=== PATIENT | female | born 1945 | race Caucasian/White ===

== ENCOUNTER 2020-09-06 14:03 | Outpatient (CLI) | payer MEDICARE ==
[~2020-09-06] VITALS: Ht 149.9 cm; Wt 46.8 kg
[2020-09-06] MEDS ORDERED: LORA-404 PO (15:00)
[2020-09-06] MEDS ORDERED: METO-333 PO (15:00)
[2020-09-06] MEDS ORDERED: MELO15TA39 PO (15:00)
[2020-09-06] MEDS ORDERED: TRM50T PO (15:00)
== END 2020-09-06 15:05 | disposition home or self-care (01) ==
LOC: PREOP 14:03
PROVIDERS: ATTEND Specialist
DX: Z01.818 Encounter for other preprocedural examination (principal)

== ENCOUNTER 2020-09-07 11:43 | Day surgery (SDC) | payer MEDICARE ==
[2020-09-07] VITALS (11 sets, daily range): BP systolic 164–198; BP diastolic 76–98
[~2020-09-07] VITALS: Ht 149 cm; Wt 46.8 kg
[~2020-09-07 11:43] MED LIST: LORA-404 PO; MELO15TA39 PO; METO-333 PO; TRM50T PO
[2020-09-07] MEDS: LACTATED RINGERS 1,000 ML IV PRN ×2 (12:29→15:35)
[2020-09-07] MEDS ORDERED: ceFAZolin INJECTION 1,000 MG in WATER (STERILE) FOR INJECTION 10 ML IV ONE (12:30)
[2020-09-07] MEDS ORDERED: ceFAZolin INJECTION 1,000 MG ONE (12:41)
[2020-09-07] MEDS ORDERED: WATER (STERILE) FOR INJECTION 10 ML ONE (12:41)
[2020-09-07] MEDS ORDERED: GLYCOPYRROLATE 0.2 MG/ML (ROBINUL) 2 ML VIAL ONE (14:01)
[2020-09-07] MEDS ORDERED: proPOfol 200 MG/20 ML (DIPRIVAN) VIAL IV ONE (14:01)
[2020-09-07] MEDS ORDERED: ONDANSETRON 4 MG/2 ML (SDV) Z0FRAN ONE ×2 (14:01→17:49)
[2020-09-07] MEDS ORDERED: NEOSTIGMINE 3 MG/3 ML VIAL ONE (14:01)
[2020-09-07] MEDS ORDERED: LIDOCAINE PF 2% 5 ML (XYLOCAINE) VIAL ONE (14:01)
[2020-09-07] MEDS ORDERED: ROCURONIUM 10 MG/ML 5 ML SYRINGE IV ONE (14:01)
[2020-09-07] MEDS ORDERED: fentaNYL INJ 100 MCG/2 ML AMP ONE (14:02)
[2020-09-07] MEDS ORDERED: ROPIVACAINE 5MG/ML 30ML VIAL ONE (14:13)
[2020-09-07] MEDS ORDERED: LIDOCAINE/EPI 2% 1:100,00 (XYLOCAINE) 20 ML VIAL ONE (14:13)
[2020-09-07] MEDS ORDERED: SEVOFLURANE (ULTANE) 15 ML INHAL SOLN ONE (17:18)
[2020-09-07] MEDS ORDERED: MEPERIDINE (DEMEROL) INJ 50 MG/ML IVP ONE (17:45)
[2020-09-07] MEDS ORDERED: HYDROmorphone 2 MG/ML VIAL (DILAUDID) IV ONE (17:45)
[2020-09-07] MEDS ORDERED: morphine INJ 10 MG/ML 1ML (SYR OR VIAL) IVP ONE (17:45)
[2020-09-07] MEDS ORDERED: ONDANSETRON 4 MG/2 ML (SDV) Z0FRAN IVP PRN ×2 (17:45→22:00)
[2020-09-07] MEDS ORDERED: morphine INJ 10 MG/ML 1ML (SYR OR VIAL) ONE (17:48)
--- NOTE | 2020-09-07 17:51 | Progress Note-Pre Operative ---
Pre-Operative Progress Note H&P Reviewed The H&P was reviewed, patient examined and no changes noted. Date Seen by Provider: Sep 07, 2020 Time Seen by Provider: 14:00 Date H&P Reviewed: Sep 07, 2020 Time H&P Reviewed: 14:30 Pre-Operative Diagnosis: bilateral mandible fx LISA KAUR DDS Sep 07, 2020 17:51
--- NOTE | 2020-09-07 18:09 | Anesthesia-General Post-Op ---
General Patient Condition Mental Status/LOC: Same as Preop Cardiovascular: Satisfactory Nausea/Vomiting: Absent Respiratory: Satisfactory Pain: Controlled Complications: Absent Post Op Complications Complications None Follow Up Care/Instructions Patient Instructions None needed. Anesthesia/Patient Condition Patient Condition Patient is doing well, no complaints, stable vital signs, no apparent adverse anesthesia problems. No complications reported per nursing. TAI ESPARZA CRNA Sep 07, 2020 18:09
[2020-09-07] MEDS: HYDROcodone/APAP 7.5MG-325 MG/15 ML (LORTAB) UDC PO PRN (20:25)
[2020-09-07] MEDS: ceFAZolin INJECTION 1,000 MG in WATER (STERILE) FOR INJECTION 10 ML IV SCH (22:29)
[2020-09-08 03:47] VITALS: BP 142/74
[2020-09-08] MEDS: HYDROcodone/APAP 7.5MG-325 MG/15 ML (LORTAB) UDC PO PRN (04:08)
[2020-09-08] MEDS: ceFAZolin INJECTION 1,000 MG in WATER (STERILE) FOR INJECTION 10 ML IV SCH (06:08)
[2020-09-08 08:07] VITALS: BP 172/74
[2020-09-08 11:09] VITALS: BP 172/74
--- NOTE | 2020-10-05 04:28 | OPERATIVE REPORT ---
DATE OF SERVICE: 09/07/2020 SURGEON: Dr. Lisa Kaur. BOOK JACKET COVER MACHINE OPERATOR: Paola Kevin. ANESTHESIA: General endotracheal. COMPLICATIONS: There were no complications. FLUIDS: 100 mL. She had 1900 mL of crystalloid and 700 mL of urine output. COUNTS: Instrument, needle and sponge count were correct x2. HISTORY OF PRESENT ILLNESS AND INDICATIONS FOR PROCEDURE: The patient is a 75-year-old white female who presented to me after she had fallen at her house while ____ approximately 2 weeks prior to I had been able to evaluate her. At this point, she noticed that her lower jaw was somehow moving different. She sought treatment from two to three other surgeons who advised her they would not treat her. She then went to her dental clinic, they took a Panorex and forwarded to me, which demonstrated a bilateral mandibular fracture of a severely atrophic mandible. She has a fracture in the mid body portion bilaterally. Her mandible was approximately 4.5 mm in vertical height. After speaking with her extensively, I advised her this is a very difficult fracture to treat and we will be fortunate if we can get it to go to union. She would need to be very compliant with her postoperative care. I also advised her that there is the inferior alveolar nerve, which runs either in this case on top of the mandible or just barely in the medullary portion and I informed her that by fixing this, she would almost certainly have some amount of decreased sensation in her chin either unilaterally or bilaterally. Also, I advised her we would have to approach this extraorally by doing bilateral dissections to expose the mandible and then place our fixation on it. I advised her at this point also that in addition to the inferior alveolar nerve she may have some decreased function of the marginal mandibular branch of the facial nerve. After answering all of her questions, she elected for surgery and then she was posted at the earliest opportune time. DESCRIPTION OF PROCEDURE: The patient was taken to the operating room and placed on the operatory table. The appropriate monitors were placed, and anesthesia was induced via nasotracheal intubation without difficulty. After this was secured, the surgeon left the room, scrubbed, returned, donned sterile gowns and gloves and prepped and draped the patient in the usual standard sterile fashion. After this, I deposited local anesthesia just barely in the subcuticular region in the mid body portion of the mandible bilaterally approximately an inch inferior to what we could feel would be the fracture sites. Started on the left side, I made an incision through the skin and subcuticular tissue and then dissected bluntly exposing the platysma muscle, which also had some marked atrophy at this point and then bluntly dissected through the platysma muscle, elevated off the deeper tissues and then this was excised sharply. After this, I could also feel the fracture site still deep in the tissue of the neck. I was then able to using a nerve stimulator dissect down and excise through the superficial layer of deep cervical fascia, excised this, reflected this superiorly. Hopefully, protecting the marginal branch of the facial nerve. After this, I continued the blunt dissection until I was able to identify the fracture site and the inferior border of the mandible. Since it has been approximately 2 weeks, there was a significant capsular callus formed there, but I was able to sharply with a scalpel #15 blade excise through this and then I was able to mobilize the fracture segments and anatomically reduce them. I then turned my attention to the right side, performed exact same procedure in the same order in which we were again able to bluntly dissect after making an incision, identified a very kind of wispy platysma layer, identify the superficial layer of deep cervical fascia. Again, using a nerve stimulator, we were able to examine whether or not we had any other branch of the facial nerve and our plane of dissection, I did not see any signs of this. We then were able to excise the superficial layer of the deep cervical fascia and then bluntly dissect the inferior border of the mandible. After this, we were able to anatomically reduce both sides of the fracture digitally but without any fixation, so we started on the right side as it appeared to come together somewhat easier and then placed a 4-hole 1.5 mm plate and after adapting it to the extreme inferior border of the mandible, we placed 2 screws in the proximal and 2 screws in the distal segment. Next, we turned our attention to the left side of the mandible where the fracture was present and again we were able to anatomically reduce this, both these plates were 5-hole 1.5 mm plates and then placed 2 in the proximal and 2 in the distal segment. I did see the inferior alveolar nerve on the left side. It was lying on top of the mandible, but still subperiosteal. I was unable to see any signs of the inferior alveolar nerve on the left side. After this, I made sure that we could move the mandible and it did indeed removed in 1 piece. After that, we copiously irrigated with normal saline and then closed the periosteum with 3-0 Vicryl bilaterally and then closed the superficial layer of the deep cervical fascia with 4-0 chromic and then the subcuticular region with 4-0 chromic and interrupted sutures and then lastly the skin with 6-0 Prolene in a running fashion bilaterally. This completed our procedure. She was allowed to emerge from her general anesthetic. She was then taken to the recovery room and assessed to have stable vital signs, breathing spontaneously with a pulse ox of 99%. Job ID: [id number] DocumentID: [id number] Dictated Date: 10/04/2020 15:52:09 Delivery Specialist Date: 10/05/2020 03:10:11 Dictated By: LISA KAUR DDS
== END 2020-09-08 11:10 | disposition home or self-care (01) ==
LOC: SDC 11:43 → 4TH 18:16 → SDC 09-08 11:10
PROVIDERS: ATTEND Specialist
DX: S02.609A Fracture of mandible, unspecified, initial encounter for closed fracture (principal)
CPT/HCPCS: 21462; 87081; 87636; C1713 ×2